=== PATIENT | female | born 2000 | race Caucasian/White ===

== ENCOUNTER 2019-03-12 17:22 | Emergency (ER) | payer BC ==
[2019-03-12 17:27] VITALS: BMI 29.0
[2019-03-12 17:51] VITALS: BP 116/71; PULSE 86; TEMP 98.2
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
[2019-03-12] MEDS ORDERED: CEPHALEXIN MONOHYDRATE 500 MG CAPSULE (UD) PO ONE (19:15)
[2019-03-12] MEDS ORDERED: CEPHALEXIN MONOHYDRATE 500 MG CAPSULE (UD) ONE (19:17)
== END 2019-03-12 19:45 | disposition home or self-care (01) ==
LOC: FER 17:22
PROC: 2W3HX1Z Immobilization of Left Thumb using Splint (ICD-10-PCS; principal; 2019-03-12)
DX: S62.512D Displaced fracture of proximal phalanx of left thumb, subsequent encounter for fracture with routine healing (principal); S50.311D Abrasion of right elbow, subsequent encounter; V18.0XXD Pedal cycle driver injured in noncollision transport accident in nontraffic accident, subsequent encounter
CPT/HCPCS: 73070-TC-RT-FY; 73140-TC-LT-FY; 99282-25

== ENCOUNTER 2022-04-21 20:04 | Emergency (ER) | payer OTHER ==
[2022-04-21 20:12] VITALS: BP 122/91; PULSE 87; TEMP 98.8; BMI 26.6
[2022-04-21] MEDS ORDERED: ACETAMINOPHEN 1000 MG/100 ML BAG IVPB ONE (20:44)
[2022-04-21] MEDS ORDERED: ONDANSETRON 4 MG/2 ML VIAL IVPUSH ONE (20:44)
[2022-04-21] MEDS ORDERED: ONDANSETRON 4 MG/2 ML VIAL ONE (20:48)
[2022-04-21] MEDS ORDERED: ACETAMINOPHEN INJECTION 100 ML IVPB ONE (20:49)
[2022-04-21] MEDS ORDERED: FAMOTIDINE 20 MG/50 ML IVPB 20 MG/50 ML MG IVPB ONE ×2 (20:56→21:05)
[2022-04-21 21:17] LABS: HEMATOCRIT 41.9 % (32.4-45.2); HEMOGLOBIN 14.6 G/dL (10.7-15.3); MCH 31.1 pg (25.7-33.7); MCHC 34.8 g/dl (32.0-36.0); MEAN CELL VOLUME 89.3 fl (80-96); PLATELET COUNT 320.1 10^3/uL (134-434); RBC 4.69 10^6/uL (3.60-5.2); WHITE BLOOD COUNT 12.1 10^3/uL (4.0-10.8)
[2022-04-21 21:23] LABS: ALBUMIN 4.8 g/dl (3.4-5.0); BILIRUBIN,TOTAL 0.8 mg/dl (0.2-1); CALCIUM 10.2 mg/dl (8.5-10); CREATININE 0.8 mg/dl (0.55-1.3); TOT PROT 8.7 g/dl (6.4-8.2)
[2022-04-21 21:34] LABS: PLATELET ESTIMATE ADEQUATE
== END 2022-04-21 22:38 | disposition home or self-care (01) ==
LOC: FER 20:04
PROC: 3E033NZ Introduction of Analgesics, Hypnotics, Sedatives into Peripheral Vein, Percutaneous Approach (ICD-10-PCS; principal; 2022-04-21)
DX: S27.819A Unspecified injury of esophagus (thoracic part), initial encounter (principal)
CPT/HCPCS: 36415; 80053; 85025; 99284-25